=== PATIENT | male | born 1955 | race Caucasian/White ===

== ENCOUNTER 2022-02-19 08:11 | Emergency (ER) | payer OTHER ==
[~2022-02-19] VITALS: Ht 177.8 cm; Wt 92.4 kg
[2022-02-19] MEDS ORDERED: LEXA1TAB2 PO (11:11)
[2022-02-19] MEDS ORDERED: FINA1TAB12 PO (11:13)
[2022-02-19] MEDS ORDERED: LISI20TA33 PO (11:13)
[2022-02-19] MEDS ORDERED: PANT40TA29 PO (11:13)
[2022-02-19] MEDS ORDERED: ATOR1TAB21 PO (11:13)
[2022-02-19] MEDS ORDERED: FLOM0.4C39 PO (11:13)
[2022-02-19 12:10] VITALS: BP 138/80
[2022-02-19] MEDS ORDERED: NIRMATRELVIR/RITONAVIR CO-PACK (EMERGENCY USE AUTH) PO SCH (21:00)
== END 2022-02-19 12:13 | disposition home or self-care (01) ==
LOC: M ED 08:11
DX: U07.1 COVID-19 (principal); I10 Essential (primary) hypertension; E78.5 Hyperlipidemia, unspecified; F33.9 Major depressive disorder, recurrent, unspecified; M54.50 Low back pain, unspecified; Z90.89 Acquired absence of other organs; Z79.899 Other long term (current) drug therapy